=== PATIENT | female | born 1955 | race Caucasian/White ===

== ENCOUNTER → 2017-01-21 | Outpatient (CLI) | payer OTHER ==
--- NOTE | 2017-01-21 10:59 | REPMRS ---
Patient History The patient states she had a clinical breast exam in 01/2017. Patient is postmenopausal and has history of Squamous Cell cancer. Family history of breast cancer in paternal aunt at age 50 or over and breast cancer in niece at age 38. Digital Woman Screen Mammo: January 21, 2017 - Exam #: [id number] Bilateral CC and MLO view(s) were taken. Technologist: Arleen Patel Technologist Prior study comparison: November 24, 2015, digital woman screen mammo performed at [facility]. August 19, 2014, digital woman screen mammo performed at [facility]. FINDINGS: There are scattered fibroglandular densities. There has been no change in the appearance of the mammogram from the prior studies. There is a mild amount of residual fibroglandular tissue which is fairly symmetric. There is no interval development of dominant mass, architectural distortion, or clustered microcalcification suggestive of malignancy. ASSESSMENT: BI-RADS/ACR category 1 mammogram. Negative. Recommendation Routine screening mammogram in 1 year (for women over age 40). This mammogram was interpreted with the aid of an FDA-approved computer-aided dectection system. Electronically Signed By: Musa Lynn MD 01/21/17 1734
== END ==
LOC: M WHC 09:38
PROVIDERS: ATTEND Nurse Practitioner Family
DX: Z12.31 Encounter for screening mammogram for malignant neoplasm of breast (principal)

== ENCOUNTER → 2017-01-21 | Outpatient (REF) | payer OTHER | LOC: M SFHCWAGY 10:23 | PROVIDERS: ATTEND Nurse Practitioner Family | DX: Z12.4 Encounter for screening for malignant neoplasm of cervix (principal) ==

== ENCOUNTER → 2018-04-13 | Outpatient (REF) | payer OTHER ==
[2018-04-15 14:37] LABS: HPV HYBRID CAPTURE II Positive (Negative)
== END ==
LOC: M SFHCWAGY 11:36
PROVIDERS: ATTEND Nurse Practitioner Family
DX: Z12.4 Encounter for screening for malignant neoplasm of cervix (principal); N88.8 Other specified noninflammatory disorders of cervix uteri
CPT/HCPCS: 87624; G0123

== ENCOUNTER → 2018-04-13 | Outpatient (CLI) | payer OTHER ==
--- NOTE | 2018-04-13 12:27 | REPMRS ---
Patient History The patient states she had a clinical breast exam in 04/2018. Patient is postmenopausal and has history squamous cell skin cancer at age 61. Family history of breast cancer at age 50 or over in paternal aunt, breast cancer at age 38 in niece. No Hormone Replacement Therapy Digital Woman Screen Mammo: April 13, 2018 - Exam #: [id number] Bilateral CC and MLO view(s) were taken. Technologist: Gail Cano, Technologist Prior study comparison: January 21, 2017, digital woman screen mammo performed at [facility]. November 24, 2015, digital woman screen mammo performed at [facility]. August 19, 2014, digital woman screen mammo performed at [facility]. FINDINGS: There are scattered fibroglandular densities. There has been no change in the appearance of the mammogram from the prior studies. There is a mild amount of scattered fibroglandular density which is fairly symmetric. There is no interval development of dominant mass, architectural distortion, or clustered microcalcification suggestive of malignancy. 3-D tomosynthesis shows no additional findings. Assessment: BI-RADS/ACR category 1 mammogram. Negative. Recommendation Routine screening mammogram of both breasts in 1 year (for women over age 40). This patient's Lifetime Breast Cancer RIsk is estimated at 6.8 %. This mammogram was interpreted with the aid of an FDA-approved computer-aided dectection system. Electronically Signed By: Kwaku Kirkland MD 04/13/18 [id number]
== END ==
LOC: M WHC 10:57
PROVIDERS: ATTEND Nurse Practitioner Family
DX: Z12.31 Encounter for screening mammogram for malignant neoplasm of breast (principal)

== ENCOUNTER 2018-05-26 07:24 | Day surgery (SDC) | payer OTHER ==
[~2018-05-26] VITALS: Ht 152.4 cm; Wt 56.2 kg
[~2018-05-26 07:24] MED LIST: FOLI400T PO; PROBCAP14 PO
[2018-05-26] MEDS ORDERED: NS 1,000 ML IV ONE (08:30)
[2018-05-26] MEDS ORDERED: LIDOCAINE 2% INJ 100 MG/5 ML SDV (FOR ANES.) As Ordered ONE (08:45)
[2018-05-26] MEDS ORDERED: PROPOFOL 200 MG/20 ML VIAL As Ordered ONE (08:46)
--- NOTE | 2018-05-26 09:35 | ROOR ---
Patient Name: Mervat Castro Procedure Date: 05/26/2018 9:13 AM Date of : 1955 Age: 63 Room: [facility] Gender: Female Note Status: Finalized Procedure: Colonoscopy Indications: Change in bowel habits, Constipation Providers: Patrice JONES MD Referring MD: Brandon Mendoza MD Requesting Provider: Medicines: Monitored Anesthesia Care Complications: No immediate complications. Procedure: Pre-Anesthesia Assessment: - The heart rate, respiratory rate, oxygen saturations, blood pressure, adequacy of pulmonary ventilation, and response to care were monitored throughout the procedure. The Colonoscope was introduced through the anus and advanced to 10 cm into the ileum. The colonoscopy was performed without difficulty. The patient tolerated the procedure well. The quality of the bowel preparation was good. Findings: The perianal and digital rectal examinations were normal. The colon (entire examined portion), area from anus to cecum and area from anus to ileum appeared normal. Biopsies for histology were taken with a cold forceps from the entire colon for evaluation of microscopic colitis. The terminal ileum appeared normal. Impression: - The colon is somewhat redundant - The entire colon and terminal ileum are otherwise normal. - Biopsies for histology were taken for evaluation of microscopic colitis. Recommendation: - Use fiber, for example Citrucel, Fibercon, Konsyl or Metamucil. - Telephone endoscopist for pathology results in 2 weeks. Patrice Jones MD Patrice JONES MD 05/26/2018 9:35:27 AM This report has been signed electronically. Number of Addenda: 0 Note Initiated On: 05/26/2018 9:13 AM Estimated Blood Loss: Estimated blood loss: none.
[2018-05-26 09:50] VITALS: BP 107/61
== END 2018-05-26 10:01 | disposition home or self-care (01) ==
LOC: M OPP 07:24
PROVIDERS: ATTEND Internal Medicine Gastroenterology
DX: R19.4 Change in bowel habit (principal); R87.89 Other abnormal findings in specimens from female genital organs; Z80.3 Family history of malignant neoplasm of breast; Z80.49 Family history of malignant neoplasm of other genital organs

== ENCOUNTER → 2019-04-14 | Outpatient (REF) | payer OTHER | LOC: M PLALAB 11:02 | PROVIDERS: ATTEND Nurse Practitioner Family | DX: Z12.4 Encounter for screening for malignant neoplasm of cervix (principal); R87.610 Atypical squamous cells of undetermined significance on cytologic smear of cervix (ASC-US); N95.2 Postmenopausal atrophic vaginitis | CPT/HCPCS: 87624; G0123 ==

== ENCOUNTER → 2019-04-14 | Outpatient (CLI) | payer OTHER ==
--- NOTE | 2019-04-14 13:20 | REPMRS ---
Patient History The patient states she had a clinical breast exam in 04/26. Patient is postmenopausal and has history of skin cancer at age 61. Family history of breast cancer at age 50 or over in paternal aunt, breast cancer at age 38 in niece. No Hormone Replacement Therapy Digital Woman Screen Mammo: April 14, 2019 - Exam #: [id number] Bilateral CC and MLO view(s) were taken. Technologist: Gail Cano, Technologist Prior study comparison: April 13, 2018, bilateral digital woman screen mammo performed at [facility]. January 21, 2017, digital woman screen mammo performed at [facility]. November 24, 2015, digital woman screen mammo performed at [facility]. FINDINGS: There are scattered fibroglandular densities. There has been no change in the appearance of the mammogram from the prior studies. There is a mild amount of scattered fibroglandular density which is fairly symmetric. There is no interval development of dominant mass, architectural distortion, or grouped microcalcification suggestive of malignancy. 3-D tomosynthesis shows no additional findings. Assessment: BI-RADS/ACR category 1 mammogram. Negative Mammogram. Recommendation Routine screening mammogram of both breasts in 1 year (for women over age 40). This patient's Lifetime Breast Cancer Risk is estimated at 6.5 %. This mammogram was interpreted with the aid of an FDA-approved computer-aided dectection system. Electronically Signed By: Kwaku Kirkland MD 04/14/19 [id number]
== END ==
LOC: M WHC 11:24
PROVIDERS: ATTEND Nurse Practitioner Family
DX: Z12.31 Encounter for screening mammogram for malignant neoplasm of breast (principal); Z80.3 Family history of malignant neoplasm of breast; Z85.828 Personal history of other malignant neoplasm of skin

== ENCOUNTER → 2019-05-10 | Outpatient (REF) | payer OTHER | LOC: M SFHCWAGY 17:13 | PROVIDERS: ATTEND Nurse Practitioner Women's Health | DX: R87.810 Cervical high risk human papillomavirus (HPV) DNA test positive (principal); R87.610 Atypical squamous cells of undetermined significance on cytologic smear of cervix (ASC-US) ==

== ENCOUNTER → 2019-06-07 | Outpatient (REF) | payer OTHER ==
[2019-06-07 13:04] LABS: FREE T4 1.01 NG/DL (0.76-1.46); THYROID STIMULATING HORMONE 4.15 uIU/ML (0.358-3.740)
== END ==
LOC: M LABDRAW1 09:57
PROVIDERS: ATTEND Internal Medicine Endocrinology, Diabetes & Metabolism
DX: E04.1 Nontoxic single thyroid nodule (principal)

== ENCOUNTER → 2019-10-22 | Outpatient (CLI) | payer OTHER ==
[2019-10-22 11:35] LABS: FREE T4 0.84 NG/DL (0.76-1.46); THYROID STIMULATING HORMONE 4.09 uIU/ML (0.358-3.740)
== END ==
LOC: M LAB 10:21
PROVIDERS: ATTEND Nurse Practitioner Family
DX: E04.1 Nontoxic single thyroid nodule (principal)

== ENCOUNTER → 2020-04-14 | Outpatient (CLI) | payer SELFPAY | LOC: M LABSMTC 10:05 | PROVIDERS: ATTEND Pediatrics | DX: Z20.822 Contact with and (suspected) exposure to COVID-19 (principal) ==

== ENCOUNTER → 2020-04-24 | Outpatient (CLI) | payer SELFPAY | LOC: M LABSMTC 13:47 | PROVIDERS: ATTEND Pediatrics | DX: Z20.822 Contact with and (suspected) exposure to COVID-19 (principal) ==

== ENCOUNTER → 2020-05-12 | Outpatient (CLI) | payer MEDICARE, OTHER ==
--- NOTE | 2020-05-12 14:07 | REPMRS ---
Patient History The patient states she had a clinical breast exam in 05/28 Family history of breast cancer at age 50 or over in paternal aunt, breast cancer at age 38 in niece. No Hormone Replacement Therapy Digital Woman Screen Mammo: May 12, 2020 - Exam #: [id number] Bilateral CC and MLO view(s) were taken. Technologist: Chiquis Nicole, Technologist Prior study comparison: April 14, 2019, bilateral digital woman screen mammo performed at [facility]. April 13, 2018, bilateral digital woman screen mammo performed at [facility]. January 21, 2017, digital woman screen mammo performed at [facility]. FINDINGS: There are scattered fibroglandular densities. The Volpara volumetric breast density category is:B. There has been no change in the appearance of the mammogram from the prior studies. There is a mild amount of scattered fibroglandular density which is fairly symmetric. There is no interval development of dominant mass, architectural distortion, or grouped microcalcification suggestive of malignancy. 3-D tomosynthesis shows no additional findings. Assessment: BI-RADS/ACR category 1 mammogram. Negative Mammogram. Recommendation Routine screening mammogram of both breasts in 1 year (for women over age 40). This patient's [facility] Lifetime Breast Cancer Risk is estimated at 6.2 %. This mammogram was interpreted with the aid of an FDA-approved computer-aided dectection system. Electronically Signed By: Kwaku Kirkland MD 05/12/20 2365
== END ==
LOC: M WHC 11:09
PROVIDERS: ATTEND Nurse Practitioner Family
DX: Z01.411 Encounter for gynecological examination (general) (routine) with abnormal findings (principal); Z12.31 Encounter for screening mammogram for malignant neoplasm of breast; Z80.3 Family history of malignant neoplasm of breast
CPT/HCPCS: 77063; 77067; 87624; G0101; G0123

== ENCOUNTER → 2020-05-12 | Outpatient (REF) | payer MEDICARE, OTHER | LOC: M SFHCWAGY 13:38 | PROVIDERS: ATTEND Nurse Practitioner Family | DX: Z12.4 Encounter for screening for malignant neoplasm of cervix (principal); R87.610 Atypical squamous cells of undetermined significance on cytologic smear of cervix (ASC-US); R87.810 Cervical high risk human papillomavirus (HPV) DNA test positive | CPT/HCPCS: 87624; G0123 ==

== ENCOUNTER → 2020-09-13 | Outpatient (CLI) | payer MEDICARE, OTHER ==
[~2020-09-13] MED LIST changes: -FOLI400T PO; +FOLI400T13 PO
[2020-09-13 10:30] LABS: FREE T4 0.83 NG/DL (0.76-1.46); THYROID STIMULATING HORMONE 2.34 uIU/ML (0.358-3.740)
== END ==
LOC: M LAB 09:18
PROVIDERS: ATTEND Internal Medicine Endocrinology, Diabetes & Metabolism
DX: E04.1 Nontoxic single thyroid nodule (principal)

== ENCOUNTER → 2021-05-15 | Outpatient (REF) | payer MEDICARE, OTHER | LOC: M PLALAB 14:40 | PROVIDERS: ATTEND Obstetrics & Gynecology | DX: Z01.419 Encounter for gynecological examination (general) (routine) without abnormal findings (principal); N95.2 Postmenopausal atrophic vaginitis; R87.810 Cervical high risk human papillomavirus (HPV) DNA test positive ==

== ENCOUNTER → 2021-05-15 | Outpatient (CLI) | payer MEDICARE, OTHER | LOC: M WHC 14:31 | PROVIDERS: ATTEND Nurse Practitioner Women's Health | DX: Z01.419 Encounter for gynecological examination (general) (routine) without abnormal findings (principal); Z12.31 Encounter for screening mammogram for malignant neoplasm of breast; N95.2 Postmenopausal atrophic vaginitis; R87.810 Cervical high risk human papillomavirus (HPV) DNA test positive | CPT/HCPCS: 77063; 77067; 87624; G0101; G0123 ==

== ENCOUNTER → 2022-07-01 | Outpatient (REF) | payer MEDICARE, OTHER | LOC: M PLALAB 13:51 | PROVIDERS: ATTEND Obstetrics & Gynecology | DX: Z01.419 Encounter for gynecological examination (general) (routine) without abnormal findings (principal); R87.610 Atypical squamous cells of undetermined significance on cytologic smear of cervix (ASC-US) ==

== ENCOUNTER → 2022-07-01 | Outpatient (CLI) | payer MEDICARE, OTHER | LOC: M WHC 10:24 | PROVIDERS: ATTEND Obstetrics & Gynecology | DX: Z12.31 Encounter for screening mammogram for malignant neoplasm of breast (principal) ==

== ENCOUNTER → 2022-07-15 | Outpatient (CLI) | payer MEDICARE, OTHER | LOC: M WHC 08:48 | PROVIDERS: ATTEND Obstetrics & Gynecology | DX: Z13.820 Encounter for screening for osteoporosis (principal); M85.89 Other specified disorders of bone density and structure, multiple sites ==

== ENCOUNTER → 2023-07-21 | Outpatient (REF) | payer MEDICARE, OTHER | LOC: M PLALAB 11:50 | PROVIDERS: ATTEND Obstetrics & Gynecology | DX: Z12.4 Encounter for screening for malignant neoplasm of cervix (principal); N95.2 Postmenopausal atrophic vaginitis; R87.610 Atypical squamous cells of undetermined significance on cytologic smear of cervix (ASC-US) | CPT/HCPCS: 87624; G0123 ==

== ENCOUNTER → 2023-07-21 | Outpatient (CLI) | payer MEDICARE, OTHER | LOC: M WHC 09:21 | PROVIDERS: ATTEND Obstetrics & Gynecology | DX: Z12.31 Encounter for screening mammogram for malignant neoplasm of breast (principal); R92.323 Mammographic fibroglandular density, bilateral breasts ==

== ENCOUNTER → 2024-03-01 | Outpatient (REF) | payer MEDICARE, OTHER | LOC: M LAB REF 17:29 | PROVIDERS: ATTEND Family Medicine | DX: E07.9 Disorder of thyroid, unspecified (principal); E04.1 Nontoxic single thyroid nodule; R53.83 Other fatigue ==

== ENCOUNTER → 2024-04-29 | Outpatient (REF) | payer MEDICARE, OTHER | LOC: M SFHCDERM 18:04 | PROVIDERS: ATTEND Nurse Practitioner Family | DX: D22.0 Melanocytic nevi of lip (principal) ==

== ENCOUNTER → 2024-10-21 | Outpatient (CLI) | payer MEDICARE, OTHER | LOC: M RAD 10:22 | PROVIDERS: ATTEND Nurse Practitioner Family | DX: E04.2 Nontoxic multinodular goiter (principal) ==

== ENCOUNTER → 2024-12-01 | Outpatient (CLI) | payer MEDICARE, OTHER ==
[~2024-12-01] MED LIST changes: +LIDOCAINE 1% MDV 20 ML VIAL SC SCH
[2024-12-01 13:47] VITALS: BP_DIAS 86; TEMP 97.8; O2SAT 97
== END ==
LOC: M IRPRO 13:21
PROVIDERS: ATTEND Nurse Practitioner Family
DX: E04.1 Nontoxic single thyroid nodule (principal)

== ENCOUNTER → 2024-12-16 | Outpatient (CLI) | payer MEDICARE, OTHER ==
[~2024-12-16] MED LIST changes: -LIDOCAINE 1% MDV 20 ML VIAL SC SCH
[2024-12-16 17:34] LABS: FREE T4 1.21 NG/DL (0.89-1.76)
== END ==
LOC: M PLALAB 16:10
PROVIDERS: ATTEND Nurse Practitioner Family
DX: E04.1 Nontoxic single thyroid nodule (principal)